=== PATIENT | female | born 1955 | race Caucasian/White ===

== ENCOUNTER 2016-09-10 15:56 | Inpatient (IN) | payer OTHER ==
[~2016-09-10] VITALS: Ht 154.9 cm; Wt 61.0 kg
[2016-09-10] MEDS: SODIUM CHLORIDE 0.9% 1,000 ML IV SCH (01:42)
[2016-09-10] MEDS ORDERED: LORazepam 0.5 MG TAB PO ONE (16:30)
[2016-09-10 17:02] LABS: INR 0.97 (0.9-1.15); Partial Thromboplastin Time 23.3 sec (22.64-33.71)
[2016-09-10 17:07] LABS: Basophils # (auto) 0 uL; Eosinophils # (auto) 0.2 uL; Eosinophils % (auto) 1.1 % (0.0-7.0); Hematocrit 47.9 % (36.0-46.0); Hemoglobin 15.7 g/dL (12.2-16.2); Lymphocytes # (auto) 1.3 uL; Mean Corpuscular Hemoglobin 30.1 pg (28.0-32.0); Mean Corpuscular Hgb Conc. 32.8 g/dL (32.0-36.0); Mean Corpuscular Volume 91.8 fL (80.0-100.0); Mean Platelet Volume 8.2 fL (7.4-10.4); Monocytes # (auto) 0.7 uL; Neutrophils # (auto) 11.9 uL; Neutrophils % (auto) 84.9 % (37.0-80.0); Platelet Count (auto) 332 10^3/uL (140-450); Red Cell Distribution Width 13.7 % (11.6-16.0); White Blood Cell 14.1 10^3/uL (4.4-10.8)
[2016-09-10 17:11] LABS: Albumin 4.3 g/dL (3.4-5.0); BUN/Creatinine Ratio 17.6; Calcium 8.9 mg/dL (8.5-10.1); Potassium 3.8 mmol/L (3.5-5.1)
[2016-09-10 17:22] LABS: Bilirubin, Total 0.9 mg/dL (0.2-1.0); Total Protein 8.1 g/dL (6.4-8.2)
[2016-09-10] MEDS ORDERED: metroNIDAZOLE 500MG/100ML 100 ML IV ONE (23:30)
[2016-09-10] MEDS ORDERED: PIPERACILLIN-TAZOB 3.375GM 100 ML IV ONE (23:30)
[2016-09-11] MEDS ORDERED: HYDROcodone-ACET 10/325MG TAB PO PRN (00:30)
[2016-09-11] MEDS ORDERED: VANCOMYCIN 1GM/250ML D5W 250 ML IV ONE (00:30)
[2016-09-11] MEDS ORDERED: VANCOMYCIN PER PHARMACY 0 MG IV SCH (00:30)
[2016-09-11] MEDS ORDERED: LORazepam 2MG/ML-1ML VIAL IV PRN ×2 (00:30→17:30)
[2016-09-11] MEDS: SODIUM CHLORIDE 0.9% 1,000 ML IV SCH (00:42)
[2016-09-11 01:30] VITALS: BP 118/58
[2016-09-11 05:07] VITALS: BP 131/57
[2016-09-11] MEDS: PIPERACILLIN-TAZOB 3.375GM 100 ML IV SCH ×4 (05:30→23:56)
[2016-09-11 06:49] LABS: Albumin 3.3 g/dL (3.4-5.0); BUN/Creatinine Ratio 17.3; Bilirubin, Total 0.6 mg/dL (0.2-1.0); Calcium 8.5 mg/dL (8.5-10.1); Potassium 3.9 mmol/L (3.5-5.1); Total Protein 6.3 g/dL (6.4-8.2)
[2016-09-11 08:49] VITALS: BP 130/73
[2016-09-11 12:42] VITALS: BP 120/73
[2016-09-11] MEDS: VANCOMYCIN 1GM/250ML D5W 250 ML IV SCH (15:18)
[2016-09-11] MEDS ORDERED: VANCOMYCIN 1GM/250ML D5W 250 ML IV SCH (16:00)
[2016-09-11 16:58] VITALS: BP 129/75
[2016-09-11 22:00] VITALS: BP 102/66
[2016-09-12] MEDS: VANCOMYCIN 1GM/250ML D5W 250 ML IV SCH ×2 (02:32→15:00)
[2016-09-12] MEDS: SODIUM CHLORIDE 0.9% 1,000 ML IV SCH (02:37)
[2016-09-12] MEDS: PIPERACILLIN-TAZOB 3.375GM 100 ML IV SCH ×2 (05:58→12:00)
[2016-09-12 06:18] VITALS: BP 122/72
[2016-09-12 07:20] LABS: Basophils # (auto) 0 uL; Basophils % (auto) 0.5 % (0.0-2.0); Eosinophils # (auto) 0.5 uL; Eosinophils % (auto) 7.8 % (0.0-7.0); Hematocrit 40.3 % (36.0-46.0); Hemoglobin 13.3 g/dL (12.2-16.2); Lymphocytes # (auto) 1.9 uL; Lymphocytes % (auto) 31.1 % (10.0-50.0); Mean Corpuscular Hemoglobin 30.1 pg (28.0-32.0); Mean Corpuscular Volume 91.4 fL (80.0-100.0); Monocytes # (auto) 0.4 uL; Monocytes % (auto) 6.2 % (0.0-12.0); Neutrophils # (auto) 3.3 uL; Neutrophils % (auto) 54.4 % (37.0-80.0); Platelet Count (auto) 287 10^3/uL (140-450); Red Cell Distribution Width 13.6 % (11.6-16.0)
[2016-09-12 07:39] LABS: Albumin 3.6 g/dL (3.4-5.0); BUN/Creatinine Ratio 22.1; Bilirubin, Total 0.5 mg/dL (0.2-1.0); Calcium 8.9 mg/dL (8.5-10.1); Potassium 4.1 mmol/L (3.5-5.1); Total Protein 6.8 g/dL (6.4-8.2)
[2016-09-12 14:37] VITALS: BP 130/77
== END 2016-09-12 16:17 | disposition home or self-care (01) | DRG 53 ==
LOC: ER 16:00 → OVERFLOW 16:01 → CENTRAL 09-11 01:08
PROVIDERS: ADMIT Family Medicine; ATTEND Family Medicine
DX: G40.909 Epilepsy, unspecified, not intractable, without status epilepticus (principal); I95.9 Hypotension, unspecified; L03.116 Cellulitis of left lower limb; E86.0 Dehydration; L03.032 Cellulitis of left toe; T46.7X5A Adverse effect of peripheral vasodilators, initial encounter; Z87.820 Personal history of traumatic brain injury; Z82.49 Family history of ischemic heart disease and other diseases of the circulatory system; Z81.8 Family history of other mental and behavioral disorders; Y92.89 Other specified places as the place of occurrence of the external cause
CPT/HCPCS: 36415; 70450; 73660; 80053; 80202; 85025; 85049; 85610; 85730; 87040; 93005; 95819; 96365; J2543; J3490